=== PATIENT | female | born 1945 | race Caucasian/White ===

== ENCOUNTER → 2021-03-19 | Outpatient (CLI) | payer MEDICARE, BC | END | disposition home or self-care (01) | LOC: LAB 11:31 → LAB SHORT 11:31 | DX: D48.5 Neoplasm of uncertain behavior of skin (principal) | CPT/HCPCS: 88305 ==

== ENCOUNTER 2022-01-03 10:43 | Day surgery (SDC) | payer MEDICARE, BC ==
[~2022-01-03] VITALS: Ht 172.7 cm; Wt 57.2 kg
[2022-01-03] MEDS ORDERED: TURMERIC ROOT5000 GM (11:27)
== END 2022-01-03 13:00 | disposition home or self-care (01) ==
LOC: ORSCSDS 10:43
DX: Z12.11 Encounter for screening for malignant neoplasm of colon (principal); D12.2 Benign neoplasm of ascending colon; D12.3 Benign neoplasm of transverse colon; K57.30 Diverticulosis of large intestine without perforation or abscess without bleeding; K64.8 Other hemorrhoids
CPT/HCPCS: 88305; J2405; J2704; J7120

== ENCOUNTER 2022-09-18 06:44 | Day surgery (SDC) | payer MEDICARE, BC ==
[~2022-09-18] VITALS: Ht 172.7 cm; Wt 59.5 kg
[~2022-09-18 06:44] MED LIST: TURMERIC ROOT5000 GM
--- NOTE | 2022-09-18 07:26 | NUR ---
09/18/22 0726 Krista Holley 0711, ALVIN 0713 PER ORDERS
[2022-09-18 08:36] VITALS: BP 127/63
--- NOTE | 2022-09-18 08:49 | NUR ---
09/18/22 0849 David Hurtado IV REMOVED.
== END 2022-09-18 08:49 | disposition home or self-care (01) ==
LOC: ORSCSDS 06:44
PROVIDERS: Ophthalmology
PROC: 08DJ3ZZ Extraction of Right Lens, Percutaneous Approach (ICD-10-PCS; principal; 2022-09-18 08:00)
DX: H25.13 Age-related nuclear cataract, bilateral (principal); H04.123 Dry eye syndrome of bilateral lacrimal glands; H43.812 Vitreous degeneration, left eye
CPT/HCPCS: J2001; J2250; J3010; J3301; J7040; V2632

== ENCOUNTER 2022-09-25 06:12 | Day surgery (SDC) | payer MEDICARE, BC ==
[~2022-09-25] VITALS: Ht 172.7 cm; Wt 58.9 kg
--- NOTE | 2022-09-25 06:32 | NUR ---
09/25/22 0632 Mariel Carson AT 0654 PLEDGET AT [id number]
[2022-09-25 08:01] VITALS: BP 123/65
--- NOTE | 2022-09-25 08:21 | NUR ---
09/25/22 0821 David Hurtado IV REMOVED. SITE WNL.
== END 2022-09-25 08:18 | disposition home or self-care (01) ==
LOC: ORSCSDS 06:12
PROVIDERS: Ophthalmology
PROC: 08DK3ZZ Extraction of Left Lens, Percutaneous Approach (ICD-10-PCS; principal; 2022-09-25 07:30)
DX: H25.12 Age-related nuclear cataract, left eye (principal); Z96.1 Presence of intraocular lens
CPT/HCPCS: J2001; J2250; J3010; J3301; J7040; V2632

== ENCOUNTER 2024-11-10 08:23 | Day surgery (SDC) | payer MEDICARE, BC ==
[~2024-11-10] VITALS: Ht 172.7 cm; Wt 57.1 kg
[~2024-11-10 08:23] MED LIST changes: +Lactated Ringer's 1,000 ML IV ONE; +propofoL 50 ML IV ONE
[2024-11-10] MEDS ORDERED: ERGO400 (09:08)
[2024-11-10] MEDS ORDERED: Lactated Ringer's 1,000 ML IV ONE (10:35)
[2024-11-10 11:29] VITALS: BP 120/73
== END 2024-11-10 11:45 | disposition home or self-care (01) ==
LOC: ORSCSDS 08:23
PROVIDERS: Specialist
PROC: 0DBK8ZX Excision of Ascending Colon, Via Natural or Artificial Opening Endoscopic, Diagnostic (ICD-10-PCS; principal; 2024-11-10 10:00)
PROC: 0DBL8ZX Excision of Transverse Colon, Via Natural or Artificial Opening Endoscopic, Diagnostic (ICD-10-PCS; principal; 2024-11-10 10:00)
DX: Z12.11 Encounter for screening for malignant neoplasm of colon (principal); Z86.0101 Personal history of adenomatous and serrated colon polyps; D12.2 Benign neoplasm of ascending colon; D12.3 Benign neoplasm of transverse colon; K64.8 Other hemorrhoids; K57.30 Diverticulosis of large intestine without perforation or abscess without bleeding
CPT/HCPCS: 88305; J2704; J7120